=== PATIENT | female | born 1950 ===

== ENCOUNTER 2023-11-06 14:22 | Inpatient (IN) | payer MEDICARE, OTHER ==
[~2023-11-06] VITALS: Ht 154.9 cm; Wt 65.8 kg
[2023-11-06] MEDS ORDERED: REMEDY ESSENTIAL ZINC PASTE 113 GM TOP PRN (23:15)
[2023-11-06] MEDS ORDERED: ONDA4TAB11 IVP (23:58)
[2023-11-06] MEDS ORDERED: ENOX40DI SQ (23:58)
[2023-11-06] MEDS ORDERED: HYDR-3980 PO (23:58)
[2023-11-06] MEDS ORDERED: DAPA5TAB PO (23:58)
[2023-11-06] MEDS ORDERED: LINA5TAB PO (23:58)
[2023-11-06] MEDS ORDERED: SERT20OR6 PO (23:58)
[2023-11-06] MEDS ORDERED: BACL10TA PO (23:58)
[2023-11-06] MEDS ORDERED: [UNRECOGNIZED DRUG - CODE] PO (23:58)
[2023-11-06] MEDS ORDERED: METO37.5 PO (23:58)
[2023-11-06] MEDS ORDERED: OXYB5TAB16 PO (23:58)
[2023-11-06] MEDS ORDERED: ATOR40TA PO (23:58)
[2023-11-06] MEDS ORDERED: FAMO20TA8 PO (23:58)
[2023-11-06] MEDS ORDERED: MORP2VIA IJ (23:58)
[2023-11-07] MEDS ORDERED: DEXTROSE 50% 50 ML DISP.SYRIN IV PRN
[2023-11-07] MEDS ORDERED: MORPHINE SULFATE 2 MG/1 ML DISP.SYRIN IV PRN (00:45)
[2023-11-07] MEDS ORDERED: ONDANSETRON ODT 4 MG TAB.RAPDIS SL PRN (00:45)
[2023-11-07] MEDS ORDERED: MAG HYDROX/AL HYDROX/SIMETH 30 ML LIQUID UDC PO PRN (02:30)
[2023-11-07 04:00] VITALS: BP 128/55; TEMP 98.2; O2SAT 100
[2023-11-07] MEDS: BLOOD SUGAR DIAGNOSTIC 1 EACH STRIP VI SCH (06:47)
[2023-11-07] MEDS: LINAGLIPTIN 5 MG TABLET PO SCH (08:21)
[2023-11-07] MEDS: OXYBUTYNIN CHLORIDE 5 MG TABLET PO SCH (08:21)
[2023-11-07] MEDS: FAMOTIDINE 20 MG TABLET PO PRN (08:21)
[2023-11-07] MEDS: SERTRALINE HCL 50 MG TABLET PO SCH (08:21)
[2023-11-07] MEDS: BACLOFEN 10 MG TABLET PO SCH (08:21)
[2023-11-07] MEDS: METOPROLOL TARTRATE 50 MG TABLET PO SCH (08:22)
[2023-11-07] MEDS: ENOXAPARIN SODIUM 40 MG/0.4 ML DISP.SYRIN SQ SCH (08:27)
[2023-11-07] MEDS ORDERED: Medication Not On Formulary EA (Dapagliflozin Propanediol (Farxiga) 5 MG) PO SCH (09:00)
[2023-11-07] MEDS: ACETAMINOPHEN 325 MG TABLET PO PRN (09:54)
[2023-11-07] MEDS: DAPAGLIFLOZIN PROPANEDIOL 5 MG TABLET PO SCH (11:34)
[2023-11-07 16:30] VITALS: BP 116/50; TEMP 98.4; O2SAT 96
[2023-11-07] MEDS: ATORVASTATIN 40 MG TABLET PO SCH (17:39)
[2023-11-07 19:58] VITALS: BP 122/65; TEMP 98.3; O2SAT 93
[2023-11-07] MEDS: INSULIN REGULAR, HUMAN 300 UNIT/3 ML VIAL SQ PRN (20:41)
[2023-11-08 05:40] VITALS: BP 121/62; TEMP 98.4; O2SAT 95
[2023-11-08] MEDS: METOPROLOL TARTRATE 50 MG TABLET PO SCH (08:20)
[2023-11-08 16:59] VITALS: BP 125/50; TEMP 99.5; O2SAT 95
[2023-11-08 22:39] VITALS: BP 117/65; TEMP 98.5; O2SAT 95
[2023-11-09 05:26] VITALS: BP 112/57; TEMP 99; O2SAT 93
[2023-11-09] MEDS: GLUCERNA SHAKE 237 ML CAN PO SCH (14:15)
[2023-11-09 15:50] VITALS: BP 127/76; TEMP 98.2; O2SAT 99
[2023-11-09 20:31] VITALS: BP 109/44; TEMP 98.9; O2SAT 94
[2023-11-10 04:30] VITALS: BP 108/42; TEMP 98.7; O2SAT 93
[2023-11-10] MEDS: HYDROCODONE/APAP 10-325 MG TABLET PO PRN (09:03)
[2023-11-10] MEDS ORDERED: HYDROCORTISONE 1% OINT 28.35 GM TUBE TOP SCH (09:15)
[2023-11-10 16:30] VITALS: BP 112/61; TEMP 98.3; O2SAT 96
[2023-11-10 19:42] VITALS: BP 111/60; TEMP 98.2; O2SAT 97
[2023-11-11 06:05] VITALS: BP 96/51; TEMP 98.3; O2SAT 94
[2023-11-11] MEDS: IBUPROFEN 600 MG TABLET PO PRN (10:53)
[2023-11-11 15:37] VITALS: BP 106/45; TEMP 98.3; O2SAT 95
[2023-11-11 19:55] VITALS: BP 116/53; TEMP 97.5; O2SAT 10
[2023-11-12 05:42] VITALS: BP 107/53; TEMP 97.5; O2SAT 97
[2023-11-12 11:02] VITALS: BP 102/44; TEMP 97.2; O2SAT 97
[2023-11-12] MEDS: GLUCERNA SHAKE 237 ML CAN PO SCH (12:17)
[2023-11-12 16:36] VITALS: BP 110/54; TEMP 98; O2SAT 97
[2023-11-12 17:04] VITALS: BP 102/51; TEMP 98; O2SAT 97
[2023-11-12 21:51] VITALS: BP 119/57; TEMP 98.3; O2SAT 95
[2023-11-13 07:29] VITALS: BP 111/53; TEMP 98.3; O2SAT 94
[2023-11-13 10:54] LABS: BASOPHILS % (AUTO) 0.6 % (0.0-2.0); EOSINOPHILS # (AUTO) 0.1 K/uL (0.0-0.7); EOSINOPHILS % (AUTO) 1.8 % (0.0-7.0); HEMATOCRIT 29.1 % (31.2-41.9); HEMOGLOBIN 9.8 g/dL (10.9-14.3); LYMPHOCYTES # (AUTO) 1.3 K/uL (0.8-4.8); LYMPHOCYTES % (AUTO) 18.2 % (20.5-51.5); MEAN CORPUSCULAR HEMOGLOBIN 28.6 uug (24.7-32.8); MEAN CORPUSCULAR HGB CONC 34 g/dL (32.3-35.6); MEAN CORPUSCULAR VOLUME 85.1 fL (75.5-95.3); MONOCYTES # (AUTO) 0.7 K/uL (0.1-1.30); MONOCYTES % (AUTO) 9.4 % (0.0-11.0); PLATELET COUNT (AUTO) 425 K/uL (179-408); RED BLOOD CELL COUNT(AUTO) 3.42 MIL/uL (3.63-4.92); WHITE BLOOD COUNT (AUTO) 7.2 K/uL (3.8-11.8)
[2023-11-13 11:06] LABS: CALCIUM 8.9 mg/dL (8.5-10.1); CREATININE 0.8 mg/dL (0.6-1.3); DIFFERENTIAL COMMENT 1; POTASSIUM 4.1 mmol/L (3.5-5.1)
[2023-11-13 11:14] LABS: ALBUMIN 2.5 g/dL (3.4-5.0); BILIRUBIN,TOTAL 0.6 mg/dL (0.2-1.0); TOTAL PROTEIN, SERUM 6.7 g/dL (6.4-8.2)
[2023-11-13 11:51] LABS: *BILIRUBIN,URIN NEGATIVE (NEGATIVE); *BLOOD, URINE NEGATIVE (NEGATIVE); *CLARITY,URINE CLEAR (CLEAR); *COLOR,URINE YELLOW (YELLOW); *KETONES,URINE NEGATIVE (NEGATIVE); *PROTEIN,URINE NEGATIVE (NEGATIVE); *UROBILINOGEN,URINE 0.2 E.U./dl (NORMAL); LEUKOCYTE ESTERASE ,URINE TRACE (NEGATIVE); NITRITE, URINE NEGATIVE (NEGATIVE); UGLUCOSE NEGATIVE (NEGATIVE)
[2023-11-13 12:57] LABS: BACTERIA,URINE NONE SEEN /HPF (NONE SEEN); RBC,URINE NONE SEEN /HPF (0-3); SQUAMOUS EPITHELIAL CELL,UR FEW /HPF (NONE SEEN); WBC,URINE 0-3 /HPF (0-3)
[2023-11-13 15:04] VITALS: BP 115/50; TEMP 98.4; O2SAT 94
[2023-11-14 16:19] VITALS: BP 108/51; TEMP 97.7; O2SAT 98
[2023-11-14 20:07] VITALS: BP 118/58; TEMP 98.2; O2SAT 100
[2023-11-14] MEDS: NITROFURANTOIN/NITROFURAN MAC 100 MG CAPSULE PO SCH (20:08)
[2023-11-15 05:24] VITALS: BP 119/58; TEMP 98.1; O2SAT 95
[2023-11-15 08:31] VITALS: BP 103/64; TEMP 97.9; O2SAT 99
[2023-11-15 16:10] VITALS: BP 107/59; TEMP 98.4; O2SAT 100
[2023-11-15 20:20] VITALS: BP 111/46; TEMP 98.8; O2SAT 97
[2023-11-16 06:09] VITALS: BP 107/52; TEMP 98; O2SAT 98
[2023-11-16 16:50] VITALS: BP 120/54; TEMP 98.6; O2SAT 96
[2023-11-16 19:30] VITALS: BP 113/66; TEMP 98.2; O2SAT 94
[2023-11-16] MEDS: METOPROLOL TARTRATE 50 MG TABLET PO SCH (21:00)
[2023-11-17 06:41] VITALS: BP 107/48; TEMP 98.1; O2SAT 96
[2023-11-17 07:11] LABS: BASOPHILS % (AUTO) 0.6 % (0.0-2.0); EOSINOPHILS # (AUTO) 0.2 K/uL (0.0-0.7); EOSINOPHILS % (AUTO) 2.5 % (0.0-7.0); HEMATOCRIT 28.8 % (31.2-41.9); HEMOGLOBIN 9.6 g/dL (10.9-14.3); LYMPHOCYTES # (AUTO) 1.8 K/uL (0.8-4.8); LYMPHOCYTES % (AUTO) 23.4 % (20.5-51.5); MEAN CORPUSCULAR HEMOGLOBIN 28.7 uug (24.7-32.8); MEAN CORPUSCULAR HGB CONC 33 g/dL (32.3-35.6); MEAN CORPUSCULAR VOLUME 86.1 fL (75.5-95.3); MONOCYTES # (AUTO) 0.8 K/uL (0.1-1.30); MONOCYTES % (AUTO) 10.6 % (0.0-11.0); NEUTROPHILS # (AUTO) 4.8 K/uL (1.8-8.9); NEUTROPHILS % (AUTO) 62.9 % (38.5-71.5); PLATELET COUNT (AUTO) 417 K/uL (179-408); RED BLOOD CELL COUNT(AUTO) 3.34 MIL/uL (3.63-4.92); RED CELL DISTRIBUTION WIDTH 14.6 % (12.3-17.7); WHITE BLOOD COUNT (AUTO) 7.7 K/uL (3.8-11.8)
[2023-11-17 07:27] LABS: CARBON DIOXIDE 30 mmol/L (21-32); CHLORIDE 104 mmol/L (98-107); CREATININE 0.7 mg/dL (0.6-1.3); DIFFERENTIAL COMMENT 1; GLUCOSE 104 mg/dL (74-106); MAGNESIUM 2.1 mg/dL (1.8-2.4); PHOSPHOROUS 3.9 mg/dL (2.5-4.9); POTASSIUM 4.4 mmol/L (3.5-5.1); SODIUM SERUM 140 mmol/L (136-145); UREA NITROGEN, BLOOD 15 mg/dL (7-18)
[2023-11-17 16:37] VITALS: BP 112/57; TEMP 99; O2SAT 93
[2023-11-18 06:24] LABS: BASOPHILS % (AUTO) 0.3 % (0.0-2.0); EOSINOPHILS # (AUTO) 0.2 K/uL (0.0-0.7); EOSINOPHILS % (AUTO) 1.7 % (0.0-7.0); HEMATOCRIT 27.7 % (31.2-41.9); HEMOGLOBIN 9.2 g/dL (10.9-14.3); LYMPHOCYTES # (AUTO) 1.6 K/uL (0.8-4.8); LYMPHOCYTES % (AUTO) 15.3 % (20.5-51.5); MEAN CORPUSCULAR HEMOGLOBIN 28.3 uug (24.7-32.8); MEAN CORPUSCULAR HGB CONC 33 g/dL (32.3-35.6); MONOCYTES % (AUTO) 9.7 % (0.0-11.0); NEUTROPHILS # (AUTO) 7.5 K/uL (1.8-8.9); PLATELET COUNT (AUTO) 411 K/uL (179-408); RED BLOOD CELL COUNT(AUTO) 3.26 MIL/uL (3.63-4.92); RED CELL DISTRIBUTION WIDTH 14.5 % (12.3-17.7); WHITE BLOOD COUNT (AUTO) 10.3 K/uL (3.8-11.8)
[2023-11-18 06:55] LABS: THYROID STIMULATING HORMONE 2.173 mIU/mL (0.358-3.740)
[2023-11-18 07:01] LABS: DIFFERENTIAL COMMENT 1
[2023-11-18 07:12] LABS: ALBUMIN 2.2 g/dL (3.4-5.0); BILIRUBIN,TOTAL 0.4 mg/dL (0.2-1.0); CALCIUM 8.6 mg/dL (8.5-10.1); CREATININE 0.6 mg/dL (0.6-1.3); MAGNESIUM 2.1 mg/dL (1.8-2.4); PHOSPHOROUS 3.7 mg/dL (2.5-4.9); POTASSIUM 4.6 mmol/L (3.5-5.1)
[2023-11-18 09:07] VITALS: BP 111/46; TEMP 97.7; O2SAT 96
[2023-11-18 15:37] VITALS: BP 112/49; TEMP 98.8; O2SAT 94
[2023-11-18 20:00] VITALS: BP 109/53; TEMP 98.4; O2SAT 96
[2023-11-18] MEDS ORDERED: NEOMY/BACITRA/POLYMYXIN B OINT UD PACKET TP ONE (20:53)
[2023-11-18] MEDS: NEOMY/BACITRAC/POLYMI OINT 28.35 GM TUBE TOP ONE (21:05)
[2023-11-19 06:57] VITALS: BP 113/53; TEMP 98.4; O2SAT 96
[2023-11-19] MEDS: METOPROLOL TARTRATE 25 MG TABLET PO SCH (09:11)
[2023-11-19 15:33] VITALS: BP 110/70; TEMP 98.4; O2SAT 97
[2023-11-19 20:00] VITALS: BP 114/61; TEMP 99.5; O2SAT 95
[2023-11-19] MEDS: ATORVASTATIN 20 MG TABLET PO SCH (20:44)
[2023-11-20] MEDS: IBUPROFEN 400 MG TABLET PO PRN (10:26)
[2023-11-20 12:00] VITALS: BP 97/55; TEMP 98.4; O2SAT 98
[2023-11-20 16:00] VITALS: BP 110/54; TEMP 97.6; O2SAT 98
[2023-11-20] MEDS: NEOMY/BACITRAC/POLYMI OINT 28.35 GM TUBE TOP SCH (17:18)
== END 2023-11-20 17:45 | disposition home health service (06) | DRG 560 ==
PROVIDERS: ADMIT Physical Medicine & Rehabilitation; ATTEND Physical Medicine & Rehabilitation
DX: Z47.1 Aftercare following joint replacement surgery (principal); D68.59 Other primary thrombophilia; N39.0 Urinary tract infection, site not specified; E11.9 Type 2 diabetes mellitus without complications; Z96.641 Presence of right artificial hip joint; E78.5 Hyperlipidemia, unspecified; F03.90 Unspecified dementia, unspecified severity, without behavioral disturbance, psychotic disturbance, mood disturbance, and anxiety; I10 Essential (primary) hypertension; M81.0 Age-related osteoporosis without current pathological fracture; Z91.81 History of falling; M19.90 Unspecified osteoarthritis, unspecified site; E66.9 Obesity, unspecified; Z68.27 Body mass index [BMI] 27.0-27.9, adult; L08.9 Local infection of the skin and subcutaneous tissue, unspecified; W19.XXXD Unspecified fall, subsequent encounter; I35.1 Nonrheumatic aortic (valve) insufficiency; D64.89 Other specified anemias; D53.9 Nutritional anemia, unspecified
CPT/HCPCS: 36415; 73502; 83550; 83735; 84100; 84443; 84484; 85025; 93005; 93307; 97535-GO-CO; A4663; A6213; C1758; J1650; J1815